=== PATIENT | male | born 1950 | race Caucasian/White ===

== ENCOUNTER → 2017-05-29 | Outpatient (CLI) | payer MEDICARE ==
[2017-05-29 12:13] LABS: ALANINE AMINOTRANSFERASE 51 U/L (21-72); ALBUMIN 4.2 g/dL (3.5-5.0); ALKALINE PHOSPHATASE 86 U/L (38-126); ANION GAP 12 (5-19); ASPARTATE AMINO TRANSFERASE 40 U/L (17-59); BILIRUBIN,DIRECT 0.2 mg/dL (0.0-0.4); BILIRUBIN,TOTAL 0.2 mg/dL (0.2-1.3); BLOOD UREA NITROGEN 22 mg/dL (7-20); CALCIUM 9.9 mg/dL (8.4-10.2); CARBON DIOXIDE 28 mmol/L (22-30); CHLORIDE 104 mmol/L (98-107); CHOLESTEROL 137.03 mg/dL (0-200); GLUCOSE 102 mg/dL (75-110); POTASSIUM 5.5 mmol/L (3.6-5.0); SODIUM 144.3 mmol/L (137-145); TOTAL PROTEIN 7.5 g/dL (6.3-8.2); TRIGLYCERIDES 60 mg/dL (<150)
[2017-05-29 12:24] LABS: DIRECT LDL 71 mg/dL (<100)
== END ==
LOC: OD 10:40
PROVIDERS: ATTEND Internal Medicine
DX: I25.118 Atherosclerotic heart disease of native coronary artery with other forms of angina pectoris (principal); Z98.61 Coronary angioplasty status; E78.4 Other hyperlipidemia; I10 Essential (primary) hypertension; I73.9 Peripheral vascular disease, unspecified; R06.02 Shortness of breath; Z79.899 Other long term (current) drug therapy
CPT/HCPCS: 36415; 80053; 80061

== ENCOUNTER → 2017-06-09 | Outpatient (CLI) | payer MEDICARE ==
--- NOTE | 2017-06-09 15:12 | RADIOLOGY REPORT (SQ) ---
EXAM DESCRIPTION: CAROTID DOPPLER COMPLETED DATE/TIME: 06/09/2017 3:03 pm REASON FOR STUDY: DIZZINESS R42 DIZZINESS AND GIDDINESS COMPARISON: None. TECHNIQUE: Grayscale ultrasound, Doppler velocity and spectra, and color Doppler images acquired of the extra-cranial carotid and vertebral arteries. Images stored on PACS. LIMITATIONS: None. FINDINGS: RIGHT CAROTID CCA Velocities: Within normal limits. ICA Velocities Peak systolic 0.49 m/s. End diastolic 0.20 m/s. Proximal ICA/CCA peak systolic ratio 1.7. Spectra normal. Mild mixed calcific and noncalcific plaque. LEFT CAROTID CCA Velocities: Within normal limits. ICA Velocities Peak systolic 0.73 m/s. End diastolic 0.24 m/s. Proximal ICA/CCA peak systolic ratio 1.4. Spectra normal. Mild mixed calcific and noncalcific plaque. VERTEBRAL ARTERIES: Antegrade flow. Normal waveforms. SUBCLAVIAN ARTERIES: Not evaluated OTHER: No other significant finding. IMPRESSION: NO HEMODYNAMICALLY SIGNIFICANT STENOSIS. COMMENT: Quality ID #[id number]: Velocity criteria are extrapolated from the diameter data as defined by t he Society of Radiologists in Ultrasound Consensus Conference. Radiology 2003: 229; 340-346. TECHNICAL DOCUMENTATION: JOB ID: [id number] [employer]- All Rights Reserved Reading location - IP/workstation name: [facility]-[email or web address]
== END ==
LOC: SP 11:01
PROVIDERS: ATTEND Specialist
DX: R42 Dizziness and giddiness (principal)
CPT/HCPCS: 93880

== ENCOUNTER 2017-09-15 16:01 | Emergency (ER) | payer MEDICARE ==
[2017-09-15 16:50] VITALS: BP 122/78
--- NOTE | 2017-09-15 17:17 | ER Document Report ---
ED General - General Chief Complaint: Foot Pain Stated Complaint: FOOT PAIN Time Seen by Provider: 09/15/17 16:50 Mode of Arrival: Ambulatory Information source: Patient TRAVEL OUTSIDE OF THE [place] IN LAST 30 DAYS: No - HPI Notes: Patient is a 67-year-old male presents with report of having chronic left foot pain related to neuropathy and fifth metatarsal issues. The patient has had more than 1 previous surgery in the last 2 years on the left foot to try to correct the problem, but he still has continued discomfort. The patient denies any new numbness to the foot. He reports no acute trauma beyond walking on the foot which causes pain, although he states the pain also was intense at night intermittently. The patient reports no fever or chills or chest pain or difficulty breathing. The patient denies any ankle pain or knee pain. - Related Data Allergies/Adverse Reactions: No Known Allergies Allergy (Unverified 09/15/17 16:04) Past Medical History - General Information source: Patient - Social History Smoking Status: Current Every Day Smoker Frequency of alcohol use: Occasional Drug Abuse: None Family History: Reviewed & Not Pertinent Patient has suicidal ideation: No Patient has homicidal ideation: No - Past Medical History Cardiac Medical History: Reports: Hx Hypertension Renal/ Medical History: Denies: Hx Peritoneal Dialysis Past Surgical History: Reports: Hx Cardiac Surgery - 2 stents 2016, Hx Orthopedic Surgery - R knee x3 & L knee x2, L foot x2 Review of Systems - Review of Systems -: Yes All other systems reviewed and negative Physical Exam - Vital signs Vitals: Temp Pulse Resp BP Pulse Ox 98.5 F 79 16 122/78 98 09/15/17 16:45 09/15/17 16:45 09/15/17 16:45 09/15/17 16:45 09/15/17 16:45 - Notes Notes: PHYSICAL EXAMINATION: GENERAL: Well-appearing, well-nourished and in no acute distress. HEAD: Atraumatic, normocephalic. EYES: conjunctiva are normal. ENT: Nares patent NECK: Normal range of motion HEART: Regular rate and rhythm Musculoskeletal: Normal range of motion, no pitting or edema. No cyanosis. Patient has good pulses all 4 extremities without difficulty. The patient has a bunion on the left first metatarsophalangeal joint without erythema or abnormality. Patient has foreshortening of the left fifth metatarsal with postsurgical changes. There is no evidence for cellulitis. Distally there is good capillary refill. He has very little motion in the fifth toe chronically since his last surgery. The patient exhibits pain mainly through that postsurgical site. There is no proximal erythema or adenopathy noted. NEUROLOGICAL: Normal speech. Normal motor exams. Chronic sensory deficit left fifth toe postoperatively. PSYCH: Normal mood, normal affect. SKIN: Warm, Dry, normal turgor, no rashes or lesions noted. No cellulitis or skin breakdown. Course - Re-evaluation Re-evalutation: 09/15/17 17:23 Patient reported having x-rays earlier within the last 2 days at the internet application developer , Dr. Ragland's office. These will not be repeated. There is no clinical suggestion for infectious etiology or osteomyelitis or neurovascular compromise. Patient states he is flying out to [place] to see a surgeon that is operated on him previously for surgical intervention. He is instructed to take the x-rays with him for follow-up. We will write for a short course of oxycodone, but will have him continue ibuprofen and will add in Neurontin for what is clearly neuropathic pain. - Vital Signs Vital signs: Temp Pulse Resp BP Pulse Ox 98.5 F 79 16 122/78 98 09/15/17 16:45 09/15/17 16:45 09/15/17 16:45 09/15/17 16:45 09/15/17 16:45 Discharge - Discharge Clinical Impression: Foot pain, left Condition: Stable Disposition: HOME, SELF-CARE Instructions: Neuropathy (OM) Additional Instructions: Take ibuprofen 600 mg every 8 hours as needed for pain. Add in oxycodone as needed. Take Neurontin up to 300 mg 3 times a day as needed for neuropathic pain. Prescriptions: Oxycodone HCl/Acetaminophen [Percocet 5-325 mg Tablet] 1 - 2 tab PO Q4HP PRN # 25 tablet PRN Reason: Gabapentin [Neurontin 300 mg Capsule] 300 mg PO Q8 #60 cap Referrals: NEVAEH YOUNGBLOOD DO [Primary Care Provider] - Follow up as needed
== END 2017-09-15 17:36 | disposition home or self-care (01) ==
LOC: ER 16:01
DX: G89.29 Other chronic pain (principal); M79.672 Pain in left foot; F17.200 Nicotine dependence, unspecified, uncomplicated; I10 Essential (primary) hypertension
CPT/HCPCS: 99283

== ENCOUNTER → 2018-06-30 | Outpatient (CLI) | payer MEDICARE ==
--- NOTE | 2018-06-30 12:06 | RADIOLOGY REPORT (SQ) ---
EXAM DESCRIPTION: DUPLEX ART/JEN FLOW COMPLETE COMPLETED DATE/TIME: 06/30/2018 11:25 am REASON FOR STUDY: I70.1 ATHEROSCLEROSIS OF RENAL ARTERY I70.1 ATHEROSCLEROSIS OF RENAL ARTERY COMPARISON: None. TECHNIQUE: Realtime and static grayscale images acquired. Selected color Doppler, velocities and spe ctral images recorded. LIMITATIONS: None. FINDINGS: RIGHT KIDNEY: RENAL ARTERY VELOCITIES: 54-107 cm/sec. Segmental artery velocity 26 cm/sec. RENAL VEIN: Color doppler flow present, patent. VELOCITY RATIO: 1.1. Normal waveforms. KIDNEY: Normal in size measuring 10.1 cm exophytic cyst along the right midpole with single thin sep tation and measuring 2.1 cm. No significant pathology. LEFT KIDNEY: RENAL ARTERY VELOCITIES: 69 - 83 cm/sec. Segmental artery velocity 59 cm/sec. RENAL VEIN: Color doppler flow present, patent. VELOCITY RATIO: 0.86. Normal waveforms. KIDNEY: Normal in size measuring 11.3 cm No significant pathology. BLADDER: Unremarkable. OTHER: Aortic velocity 96 cm/s. IMPRESSION: NO DOPPLER EVIDENCE OF HEMODYNAMICALLY SIGNIFICANT RENAL ARTERY STENOSIS. COMMENT: NORMAL RENAL ARTERY/AORTA VELOCITY RATIO IS LESS THAN OR EQUAL TO 3.5. TECHNICAL DOCUMENTATION: JOB ID: [id number] [employer]- All Rights Reserved Reading location - IP/workstation name: [email or web address]
== END ==
LOC: RAD 10:05
PROVIDERS: ATTEND Specialist
DX: I70.1 Atherosclerosis of renal artery (principal)
CPT/HCPCS: 93975